=== PATIENT | female | born 1985 | race Caucasian/White ===

== ENCOUNTER → 2016-09-13 | Outpatient (CLI) | payer OTHER ==
[2016-09-13 10:59] LABS: Basophils % (A) 0 %; CH 32.4; CHCM 33.5; Eosinophils # (A) 0.1 k/uL (0-0.7); Eosinophils % (A) 1 %; HCT 33.5 % (34.0-46.0); HGB 11.2 gm/dL (11.4-16.0); Luc # (Auto) 0.25; Luc % (Auto) 2; Lymphocytes # (A) 2.3 k/uL (1.0-4.8); Lymphocytes % (A) 22 %; MCH 32.6 pg (25.0-35.0); MCHC 33.5 g/dL (31.0-37.0); MCV 97.3 fL (80.0-100.0); Mean Platelet Volume 6.8; Monocytes # (A) 0.4 k/uL (0-1.0); Monocytes % (A) 4 %; Neutrophils # (A) 7.4 k/uL (1.3-7.7); Neutrophils % (A) 70 %; RBC 3.44 m/uL (3.80-5.40); WBC 10.5 k/uL (3.8-10.6); WBC (Perox) 11.16
[2016-09-15 07:24] LABS: HIV-1/HIV-2 Ab Screen NONREAC (NON REAC)
== END | disposition home or self-care (01) ==
LOC: LABWHC1 09:53
PROVIDERS: ATTEND Midwife
DX: Z36 Encounter for antenatal screening of mother (principal); Z3A.00 Weeks of gestation of pregnancy not specified
CPT/HCPCS: 36415; 82950; 85025; 86780; 87389

== ENCOUNTER 2017-03-12 02:36 | Emergency (ER) | payer OTHER ==
[2017-03-12 02:52] VITALS: BP 108/67; PULSE 67; RESP 18; TEMP 97.5
--- NOTE | 2017-03-12 03:44 | ED ---
General Adult HPI - General Chief complaint: Eye Problems Stated complaint: Blurred Vision, 7hours Time Seen by Provider: 03/12/17 02:57 Source: patient, family, RN notes reviewed Mode of arrival: ambulatory Limitations: no limitations - History of Present Illness Initial comments: Patient is a 32-year-old female who presents emergency room today with a chief complaint of bilateral eye irritation that occurred while she was at work. She admits that she was sprained something had her safety glasses on. Didn't feel anything at the time but when she was on break nose that she was having some irritation to her eyes. Unsure if this is related. She felt like her vision was a little blurry bilaterally. Patient states still feeling some irritation to her eyes. She denies any other complaints or associated symptoms. Patient denies any recent fever, chills, shortness of breath, chest pain, back pain, abdominal pain, nausea or vomiting, numbness or tingling, dysuria or hematuria, constipation or diarrhea, headaches, or any other complaints. - Related Data Previous Rx's Medication Instructions Recorded Tobramycin 0.3% Ophth Soln [Tobrex 1 - 2 drop BOTH EYES QID #7 ml 03/12/17 0.3% Ophth Soln] Allergies Allergy/AdvReac Type Severity Reaction Status Date / Time No Known Allergies Allergy Verified 03/12/17 02:52 Review of Systems ROS Statement: Those systems with pertinent positive or pertinent negative responses have been documented in the HPI. ROS Other: All systems not noted in ROS Statement are negative. Past Medical History Past Medical History: No Reported History History of Any Multi-Drug Resistant Organisms: None Reported Past Surgical History: No Surgical Hx Reported Past Psychological History: No Psychological Hx Reported Smoking Status: Current every day smoker Past Alcohol Use History: Occasional Past Drug Use History: None Reported General Exam - General Exam Comments Initial Comments: General: The patient is awake and alert, in no distress, and does not appear acutely ill. Eye: Pupils are equal, round and reactive to light, extra-ocular movements are intact. No nystagmus. There is normal conjunctiva bilaterally. No signs of icterus. Ears, nose, mouth and throat: There are moist mucous membranes and no oral lesions. Neck: The neck is supple, there is no tenderness or JVD. Cardiovascular: There is a regular rate and rhythm. No murmur, rub or gallop is appreciated. Respiratory: Lungs are clear to auscultation, respirations are non-labored, breath sounds are equal. No wheezes, stridor, rales, or rhonchi. Musculoskeletal: Normal ROM, no tenderness. Strength 5/5. Sensation intact. Pulses equal bilaterally 2+. Neurological: A&O x 3. CN II-XII intact, There are no obvious motor or sensory deficits. Coordination appears grossly intact. Speech is normal. Skin: Skin is warm and dry and no rashes or lesions are noted. Psychiatric: Cooperative, appropriate mood & affect, normal judgment. Limitations: no limitations Course Vital Signs 03/12/17 02:48 Temperature 97.5 F L Pulse Rate 67 Respiratory 18 Rate Blood Pressure 108/67 O2 Sat by Pulse 100 Oximetry Medical Decision Making - Medical Decision Making Patient's eyes were stained and checked with Wood's lamp bilaterally. She does admit that proparacaine drops didn't improve her symptoms. Patient's pH was also checked 7.0 bilaterally. Patient will be given antibiotic drops to cover for conjunctivitis. Advised to follow-up with family doctor return if symptoms increase or worsen or for any other concerns Disposition Clinical Impression: Conjunctivitis Disposition: HOME SELF-CARE Condition: Good Instructions: Conjunctivitis (ED) Additional Instructions: Please use medication as discussed. Please follow-up with family doctor in the next 2 days of symptoms have not improved. Please return to emergency room if the symptoms increase or worsen or for any other concerns. Prescriptions: Tobramycin 0.3% Ophth Soln [Tobrex 0.3% Ophth Soln] 1 - 2 drop BOTH EYES QID #7 ml Referrals: None,Stated [Primary Care Provider] - 1-2 days Time of Disposition: 03:43
== END 2017-03-12 03:48 | disposition home or self-care (01) ==
LOC: EC 02:36
DX: H10.9 Unspecified conjunctivitis (principal); F17.200 Nicotine dependence, unspecified, uncomplicated
CPT/HCPCS: 99283

== ENCOUNTER 2017-08-07 18:34 | Emergency (ER) | payer OTHER ==
--- NOTE | 2017-08-07 19:04 | ED ---
Upper Extremity HPI - General Chief Complaint: Extremity Injury, Upper Stated Complaint: Wrist pain Time Seen by Provider: 08/07/17 18:41 Source: patient, RN notes reviewed Mode of arrival: ambulatory Limitations: no limitations - History of Present Illness Initial Comments: This is a 32-year-old female who presents to the emergency department with chief complaint of right wrist pain. Patient states that a couple of days ago she lifted her daughter and twisted her right wrist the wrong way. Later, she went to work and feels like she further exacerbated her wrist. Since that time she has had pain. Denies snuffbox tenderness. Denies any other injuries. Denies fever, chills, chest pain, shortness of breath, abdominal pain, nausea or vomiting, constipation or diarrhea, dysuria or hematuria, numbness or tingling, headache or vision changes. - Related Data Previous Rx's Medication Instructions Recorded Acetaminophen [Tylenol] 500 mg PO Q4-6H #15 tab 08/07/17 Allergies Allergy/AdvReac Type Severity Reaction Status Date / Time ibuprofen [From Motrin] AdvReac Nausea & Verified 08/07/17 18:56 Vomiting Review of Systems ROS Statement: Those systems with pertinent positive or pertinent negative responses have been documented in the HPI. ROS Other: All systems not noted in ROS Statement are negative. Past Medical History Past Medical History: No Reported History History of Any Multi-Drug Resistant Organisms: None Reported Past Surgical History: No Surgical Hx Reported Past Psychological History: No Psychological Hx Reported Smoking Status: Current every day smoker Past Alcohol Use History: Occasional Past Drug Use History: None Reported General Exam - General Exam Comments Initial Comments: General: Awake and alert, well-developed; in no apparent distress. HEENT: Head atraumatic, normocephalic. Pupils are equal, round and reactive to light. Extraocular movements intact. Poor dentition. Neck: Supple. Normal ROM. Cardiovascular: Regular rate and rhythm. No murmurs, rubs or gallops. Chest symmetrical. Respiratory: Lungs clear to auscultation bilaterally. No wheezes, rales or rhonchi. Normal respiratory effort with no use of accessory muscles. Musculoskeletal: Normal active and passive range of motion of right wrist. There is mild tenderness on palpation of dorsal aspect. No erythema or swelling noted. No snuffbox tenderness. Sensation is intact. Radial pulses are 2+ equal and palpable bilaterally. Skin: [place], warm and dry without rashes or lesions. Neurological: Alert and oriented x3. CN II-XII grossly intact. Speech is fluent and answers are appropriate. No focal neuro deficits. Psychiatric: Normal mood and affect. No overt signs of depression or anxiety noted. Limitations: no limitations Course Vital Signs 08/07/17 18:36 Temperature 98.7 F Pulse Rate 70 Respiratory 16 Rate Blood Pressure 132/91 O2 Sat by Pulse 99 Oximetry Procedures - Orthopedic Splinting/Casting Injury #2 Side: right Upper Extremity Injury Location: wrist Upper Extremity Immobilizer: Arnoldo wrap Medical Decision Making - Medical Decision Making This is a 32-year-old female who presents to the emergency department with chief complaint of right wrist pain. Patient denies snuffbox tenderness. X- ray revealed no acute abnormalities. An arnoldo bandage was placed and patient tolerated well. She is in no acute distress and is neurovascularly intact. Patient will be discharged home with recommendation to use ice and anti- inflammatories as needed. Patient is in agreement with plan voices understanding. All questions were answered. - Radiology Data Radiology results: report reviewed X-ray right wrist findings: I see no fracture nor dislocation. Carpal bones appear intact. Joint spaces appear normal. Normal right wrist. Impression: Normal right wrist Disposition Clinical Impression: Right wrist pain Disposition: HOME SELF-CARE Condition: Good Instructions: Wrist Injury (ED) Additional Instructions: Please take medications as prescribed. Please follow up with primary care provider within 1-2 days. Return to emergency department if symptoms should worsen or any concerns arise. Prescriptions: Acetaminophen [Tylenol] 500 mg PO Q4-6H #15 tab Referrals: None,Stated [Primary Care Provider] - 1-2 days Mela Hauser MD [STAFF PHYSICIAN] - 1-2 days Time of Disposition: 19:30
--- NOTE | 2017-08-07 19:05 | XR ---
EXAMINATION TYPE: XR wrist complete RT DATE OF EXAM: 08/07/2017 COMPARISON: NONE HISTORY: Wrist pain TECHNIQUE: 4 views FINDINGS: I see no fracture nor dislocation. Carpal bones appear intact. Joint spaces appear normal. Normal right wrist IMPRESSION: Normal right wrist
[2017-08-07 19:34] VITALS: BP 143/77; PULSE 79; RESP 18; TEMP 97
== END 2017-08-07 19:34 | disposition home or self-care (01) ==
LOC: EC 18:34
DX: M25.531 Pain in right wrist (principal); F17.200 Nicotine dependence, unspecified, uncomplicated; Z88.6 Allergy status to analgesic agent
CPT/HCPCS: 99283

== ENCOUNTER 2017-11-16 04:59 | Emergency (ER) | payer OTHER ==
[2017-11-16 05:07] VITALS: BP 129/90; PULSE 87; RESP 20; TEMP 98
[2017-11-16] MEDS ORDERED: PROPARACAINE 0.5% OPHTH DROPS 15 ML BTL ONE (05:24)
[2017-11-16] MEDS ORDERED: PROPARACAINE 0.5% OPHTH DROPS 15 ML BTL LEFT EYE STA (05:24)
[2017-11-16] MEDS ORDERED: TOBRAMYCIN 0.3% OPHTH DROPS 5 ML BTL BOTH EYES STA (05:36)
--- NOTE | 2017-11-16 05:37 | ED ---
Eye Problem HPI - General Chief complaint: Eye Problems Stated complaint: eye problem Time Seen by Provider: 11/16/17 05:15 Source: patient Mode of arrival: ambulatory Limitations: no limitations - History of Present Illness Initial comments: 32 years old female complaining about the left eye redness and some discharge, she went to bed last night 11 PM she was feeling fine she felt there was a mild irritation on but this morning when she woke up was quite red there was some discharge she noticed some yellow green discharge from the eye vision is slightly blurred she denies any trauma to the eye. She denies any exposure to somebody sick. 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 Review of system is unremarkable otherwise - Related Data Allergies Allergy/AdvReac Type Severity Reaction Status Date / Time ibuprofen [From Motrin] AdvReac Nausea & Verified 11/16/17 05:07 Vomiting Review of Systems ROS Statement: Those systems with pertinent positive or pertinent negative responses have been documented in the HPI. ROS Other: All systems not noted in ROS Statement are negative. Past Medical History Past Medical History: No Reported History History of Any Multi-Drug Resistant Organisms: None Reported Past Surgical History: No Surgical Hx Reported Additional Past Surgical History / Comment(s): Tubes removed. Past Psychological History: No Psychological Hx Reported Smoking Status: Current every day smoker Past Alcohol Use History: Occasional Past Drug Use History: None Reported General Exam - General Exam Comments Initial Comments: General: The patient is awake and alert, in no distress, and does not appear acutely ill. Skin: Skin is warm and dry and no rashes or lesions are noted. Eye: Pupils are equal, round and reactive , left eye is quite convinced congested, noticed him yellow discharge from the left eye pupils are round equal and reactive, no abrasion noticed over the cornea, no lesions noticed over the upper or lower eyelids Ears, nose, mouth and throat: There are moist mucous membranes and no oral lesions. Neck: The neck is supple, there is no tenderness or JVD. Cardiovascular: There is a regular rate and rhythm. No murmur, rub or gallop is appreciated. Respiratory: To auscultation bilateral, no wheezing no rhonchi no distress respiratory weber noticed Gastrointestinal: Soft, non-distended, non-tender abdomen without masses or organomegaly noted. There is no rebound or guarding present. Bowel sounds are unremarkable. Back: There is no tenderness to palpation in the midline. There is no obvious deformity. Musculoskeletal: Normal ROM, no tenderness, There is no pedal edema. There is no calf tenderness or swelling. No cords were appreciated. Neurological: CN II-XII intact, Cranial nerves III through XII are intact. There are no obvious motor or sensory deficits. Coordination appears grossly intact. Speech is normal. Psychiatric: Cooperative, appropriate mood & affect, normal judgment. Limitations: no limitations Course Vital Signs 11/16/17 05:04 Temperature 98.0 F Pulse Rate 87 Respiratory 20 Rate Blood Pressure 129/90 O2 Sat by Pulse 99 Oximetry Disposition Clinical Impression: Conjunctivitis Disposition: HOME SELF-CARE Condition: Good Instructions: Conjunctivitis (ED) Additional Instructions: ,She was given tobramycin eyedrops from the hospital she is advised to use 1-2 drops both sides every 4-6 hours and she is advised to see Dr. Charles Moore on Saturday or return to ER if symptoms get worse, she is advised to take couple days off since its quite contagious Is patient prescribed a controlled substance at d/c from ED?: No If prescribed controlled substance>3 days was MAPS reviewed?: No When asked, does pt state using other controlled substances?: No Referrals: None,Stated [Primary Care Provider] - 1-2 days
[2017-11-16] MEDS ORDERED: TOBRA-DEXAMET 0.3-0.1% OPHTH DROPS 2.5 ML BTL BOTH EYES SCH (08:00)
== END 2017-11-16 06:09 | disposition home or self-care (01) ==
LOC: EC 04:59
DX: H10.9 Unspecified conjunctivitis (principal); F17.200 Nicotine dependence, unspecified, uncomplicated; Z88.6 Allergy status to analgesic agent
CPT/HCPCS: 99282

== ENCOUNTER 2017-12-20 22:26 | Emergency (ER) | payer OTHER ==
[2017-12-20 22:33] VITALS: RESP 18
--- NOTE | 2017-12-20 22:59 | XR ---
EXAM: XR Right Ankle Complete, 3 or More Views CLINICAL HISTORY: ITS.REASON XR Reason: Pain TECHNIQUE: Frontal, lateral and oblique views of the right ankle. COMPARISON: No relevant prior studies available. FINDINGS: Bones/joints: Unremarkable. No acute fracture. No dislocation. Soft tissues soft tissue swelling around the lateral malleolus. No evidence for fracture. The ankle mortise appears preserved.
--- NOTE | 2017-12-20 23:22 | ED ---
Lower Extremity Injury HPI - General Chief Complaint: Extremity Injury, Lower Stated Complaint: Rt ankle pain/swelling Time Seen by Provider: 12/20/17 23:16 Source: patient Mode of arrival: ambulatory Limitations: no limitations - History of Present Illness Initial Comments: Patient presents with pain swelling of the right ankle. States she twisted her ankle after tripping over her child's toy. States she's had ankle sprains in the past, but no fractures or surgeries and ankle. Denies numbness or weakness in the leg. Denies pain or injury to any other area of the body. Denies loss of consciousness or syncope. Denies knee pain. Denies changes in color or rashes. - Related Data Home Medications Medication Instructions Recorded Confirmed Acetaminophen [Tylenol Extra 1,000 mg PO Q6H PRN 12/20/17 12/20/17 Strength] Previous Rx's Medication Instructions Recorded Acetaminophen Tab [Tylenol Tab] 650 mg PO Q4H PRN #60 tablet 12/20/17 Allergies Allergy/AdvReac Type Severity Reaction Status Date / Time ibuprofen [From Motrin] AdvReac Nausea & Verified 12/20/17 23:34 Vomiting Review of Systems ROS Statement: Those systems with pertinent positive or pertinent negative responses have been documented in the HPI. ROS Other: All systems not noted in ROS Statement are negative. Constitutional: Denies: fever, chills Respiratory: Denies: dyspnea Cardiovascular: Denies: chest pain Endocrine: Denies: fatigue Gastrointestinal: Denies: abdominal pain Musculoskeletal: Reports: joint swelling, arthralgia. Denies: back pain, myalgia Skin: Denies: change in color Neurological: Denies: headache, weakness, numbness Past Medical History Past Medical History: No Reported History History of Any Multi-Drug Resistant Organisms: None Reported Past Surgical History: No Surgical Hx Reported Additional Past Surgical History / Comment(s): Tubes removed. Past Psychological History: No Psychological Hx Reported Smoking Status: Current every day smoker Past Alcohol Use History: Occasional Past Drug Use History: None Reported General Exam - General Exam Comments Initial Comments: Sitting up in bed. No acute distress. Conversing normally. Calm, pleasant. Not appear in pain at rest. Limitations: no limitations General appearance: alert, in no apparent distress Head exam: Present: atraumatic, normocephalic Eye exam: Present: normal appearance, PERRL, EOMI ENT exam: Present: mucous membranes moist Neck exam: Absent: tenderness Respiratory exam: Present: normal lung sounds bilaterally. Absent: respiratory distress, wheezes Cardiovascular Exam: Present: regular rate, normal rhythm GI/Abdominal exam: Present: soft. Absent: distended, tenderness Extremities exam: Present: tenderness, normal capillary refill, joint swelling, other (Mild edema around right lateral malleolus. No bony tenderness over the metatarsals, medial malleolus, fibular head. Mild pain with active and passive range of motion of the right ankle. Patient is able to bear weight and walk into the ER. Right lower shimmy neurovascularly intact.). Absent: calf tenderness Back exam: Present: full ROM. Absent: tenderness Neurological exam: Present: alert, oriented X3 Psychiatric exam: Present: normal affect, normal mood Skin exam: Present: warm, dry, intact, normal color Course Vital Signs 12/20/17 22:29 Temperature 98.3 F Pulse Rate 98 Respiratory 18 Rate Blood Pressure 120/78 O2 Sat by Pulse 100 Oximetry Medical Decision Making - Medical Decision Making X-ray shows soft tissue swelling, no bony abnormalities. Patient updated with results. Feels comfortable being discharged home. Discussed RICE therapy. Discussed rest, elevation at work. Work note with restrictions provided. Patient to follow primary care physician on Saturday. Return to ER for new or worsening symptoms. Patient understands and agrees. Patient has ALLERGY to NSAIDs, prescription Tylenol given. Disposition Clinical Impression: Ankle sprain Disposition: HOME SELF-CARE Condition: Good Instructions: Ankle Sprain (ED) Additional Instructions: Follow-up with primary care physician on Saturday for reevaluation. Return to ER if new or worsening symptoms. Prescriptions: Acetaminophen Tab [Tylenol Tab] 650 mg PO Q4H PRN #60 tablet PRN Reason: Pain Is patient prescribed a controlled substance at d/c from ED?: No Referrals: None,Stated [Primary Care Provider] - 1-2 days
[2017-12-20 23:52] VITALS: BP 115/69; PULSE 89; TEMP 97.5
== END 2017-12-20 23:56 | disposition home or self-care (01) ==
LOC: EC 22:26
DX: S93.401A Sprain of unspecified ligament of right ankle, initial encounter (principal); F17.200 Nicotine dependence, unspecified, uncomplicated; Z88.6 Allergy status to analgesic agent; X50.1XXA Overexertion from prolonged static or awkward postures, initial encounter
CPT/HCPCS: 99283

== ENCOUNTER 2018-01-06 05:01 | Emergency (ER) | payer OTHER ==
[2018-01-06 05:07] VITALS: BP 121/79; PULSE 103; RESP 17; TEMP 98.5
[2018-01-06] MEDS ORDERED: TOBRAMYCIN 0.3% OPHTH DROPS 5 ML BTL RIGHT EYE STA (05:14)
--- NOTE | 2018-01-06 05:17 | ED ---
General Adult HPI - General Chief complaint: Eye Problems Stated complaint: Eye Pain Time Seen by Provider: 01/06/18 05:05 Source: patient, RN notes reviewed Mode of arrival: ambulatory Limitations: no limitations - History of Present Illness Initial comments: This is a 32-year-old female who states she woke up with an injected right eye which is very itchy and had quite a bit of drainage. Patient states she also has a scratchy sore throat. Patient states she has been having some postnasal drainage lately. Patient denies any fever or chills. Patient denies any ear pain. Patient denies any cough patient denies any difficulty breathing or shortness of breath. Patient denies any rashes or lesions. - Related Data Home Medications Medication Instructions Recorded Confirmed Acetaminophen [Tylenol Extra 1,000 mg PO Q6H PRN 12/20/17 12/20/17 Strength] Previous Rx's Medication Instructions Recorded Acetaminophen Tab [Tylenol Tab] 650 mg PO Q4H PRN #60 tablet 12/20/17 Allergies Allergy/AdvReac Type Severity Reaction Status Date / Time ibuprofen [From Motrin] AdvReac Nausea & Verified 01/06/18 05:07 Vomiting Review of Systems ROS Statement: Those systems with pertinent positive or pertinent negative responses have been documented in the HPI. ROS Other: All systems not noted in ROS Statement are negative. Past Medical History Past Medical History: No Reported History History of Any Multi-Drug Resistant Organisms: None Reported Past Surgical History: No Surgical Hx Reported Additional Past Surgical History / Comment(s): Tubes removed. Past Psychological History: No Psychological Hx Reported Smoking Status: Current every day smoker Past Alcohol Use History: Occasional Past Drug Use History: None Reported General Exam - General Exam Comments Initial Comments: GENERAL: Patient is well-developed and well-nourished. Patient is nontoxic and well- hydrated and is in no acute distress. ENT: Neck is soft and supple. No significant lymphadenopathy is noted. Oropharynx is clear. Moist mucous membranes. Neck has full range of motion without eliciting any pain. EYES: Patient's right conjunctiva is very injected. Extraocular movements were intact and pupils were equal round and reactive to light. Eyelids were unremarkable. PULMONARY: Unlabored respirations. Good breath sounds bilaterally. No audible rales rhonchi or wheezing was noted. CARDIOVASCULAR: There is a regular rate and rhythm without any murmurs gallops or rubs. ABDOMEN: Soft and nontender with normal bowel sounds. No palpable organomegaly was noted. There is no palpable pulsatile mass. SKIN: Skin is clear with no lesions or rashes and otherwise unremarkable. NEUROLOGIC: Patient is alert and oriented x3. Cranial nerves II through XII are grossly intact. Motor and sensory are also intact. Normal speech, volume and content. Symmetrical smile. MUSCULOSKELETAL: Normal extremities with adequate strength and full range of motion. LYMPHATICS: No significant lymphadenopathy is noted PSYCHIATRIC: Normal psychiatric evaluation. Limitations: no limitations Course Vital Signs 01/06/18 05:05 Temperature 98.5 F Pulse Rate 103 H Respiratory 17 Rate Blood Pressure 121/79 O2 Sat by Pulse 99 Oximetry Medical Decision Making - Medical Decision Making I gave the patient some tobramycin solution Disposition Clinical Impression: Conjunctivitis Disposition: HOME SELF-CARE Condition: Good Instructions: Conjunctivitis (ED) Additional Instructions: Patient should use tobramycin 4 times a day. Is patient prescribed a controlled substance at d/c from ED?: No Referrals: Alta Alba DO [Primary Care Provider] - 1-2 days Time of Disposition: 05:16
== END 2018-01-06 05:28 | disposition home or self-care (01) ==
LOC: SUPCPDRO 05:01 → EC 05:01
DX: H10.9 Unspecified conjunctivitis (principal); F17.200 Nicotine dependence, unspecified, uncomplicated; Z88.6 Allergy status to analgesic agent
CPT/HCPCS: 99283